=== PATIENT | female | born 2000 | race African-American/Black ===

== ENCOUNTER 2018-12-23 16:06 | Emergency (ER) | payer MEDICAID ==
--- NOTE | 2018-12-23 17:48 | ER Document Report ---
ED General - General Chief Complaint: Ear Pain Stated Complaint: EAR PAIN Time Seen by Provider: 12/23/18 17:48 Notes: Patient is a 18-year-old female that presents to the emergency department for chief complaint of right ear and dental pain. Patient states that she started having pain in her right ear and right face that started yesterday, seems to be irritated when she is in a cold environment which she has at work. She states she does have an issue with the tooth on her lower jaw on the right side, that seems to be worse with eating and in the cold environment. She denies noting any fevers, chills, night sweats or ear drainage. Denies having any congestion, or runny nose. Denies having any sore throat, cough, chest pain or swelling of her neck. She currently rates her pain as a 2 out of 10, describes it as an aching sensation. No other complaints at this time. Past Medical History: Denies chronic medical conditions Past Surgical History: Denies surgical history Social History: Admits to smoking cigarettes daily, denies alcohol or drug use. Family History: Reviewed and noncontributory for presenting illness Allergies: Reviewed, see documented allergy list. REVIEW OF SYSTEMS: Other than noted above, the 12 point review of systems was reviewed with the patient and were negative, all pertinent findings are included in the HPI. PHYSICAL EXAMINATION: Vital signs reviewed, nursing noted reviewed. GENERAL: Well-appearing, well-nourished and in no acute distress. HEAD: Atraumatic, normocephalic. EYES: Eyes appear normal, sclera anicteric, conjunctiva are normal. ENT: Moist mucous membranes. There is a fractured tooth on the left lower, tooth #30, with tenderness to palpation of the tongue blade and mild erythema of the gums, without evidence of abscess. The TMs appear normal bilaterally, no injection or erythema or bulging. Posterior pharynx is clear. NECK: Normal range of motion, supple without lymphadenopathy LUNGS: Breath sounds clear to auscultation bilaterally and equal. No wheezes rales or rhonchi. HEART: Regular rate and rhythm without murmurs EXTREMITIES: Nontender, good range of motion, no pitting or edema. NEUROLOGICAL: No focal neurological deficits. Moves all extremities spontaneously Motor and sensory grossly intact on exam. PSYCH: Normal mood, normal affect. SKIN: Warm, Dry, normal turgor, no rashes or lesions noted on exposed skin TRAVEL OUTSIDE OF THE [place] IN LAST 30 DAYS: No - Related Data Allergies/Adverse Reactions: shellfish derived Allergy (Verified 12/23/18 16:18) Past Medical History - Social History Smoking Status: Current Every Day Smoker Family History: Reviewed & Not Pertinent Physical Exam - Vital signs Vitals: Temp Pulse Resp BP Pulse Ox 98.0 F 98 20 132/87 H 99 12/23/18 16:20 12/23/18 16:20 12/23/18 16:20 12/23/18 16:20 12/23/18 16:20 Course - Re-evaluation Re-evalutation: Presentation is most consistent with likely an infected tooth. Airway is patent. Vitals within normal limits. Patient is able swallow without any difficulty. There is no significant facial swelling. No evidence of Ricardo angina, apical abscess, or airway obstruction. Patient will be started on antibiotics. I've instructed to follow-up with dentistry as earliest ability for definitive management. At this time will discharge with return precautions and follow-up recommendations. Verbal discharge instructions given a the bedside and opportunity for questions given. Medication warnings reviewed. Patient is in agreement with this plan and has verbalized understanding of return precautions and the need for primary care follow-up in the next 24-72 hours. - Vital Signs Vital signs: Temp Pulse Resp BP Pulse Ox 98.3 F 102 H 16 150/99 H 100 12/23/18 18:15 12/23/18 18:15 12/23/18 18:15 12/23/18 18:15 12/23/18 18:15 Discharge - Discharge Clinical Impression: Dental infection Condition: Stable Disposition: HOME, SELF-CARE Instructions: Dental Infection or Abscess ([facility]) Additional Instructions: Please take the antibiotic for the entire course prescribed, and please follow- up with a dentist, to have your tooth pain addressed. Prescriptions: RX: Amoxicillin Trihydrate [Amoxil 875 mg Tablet] 1 tab PO BID #20 tablet Ibuprofen [Motrin 600 Mg Tablet] 600 mg PO TID #15 tablet Forms: Return to Work
[2018-12-23] MEDS ORDERED: NAPROXEN 250 MG TABLET PO ONE (18:00)
[2018-12-23] MEDS ORDERED: AMOXICILLIN TRIHYDRATE 500 MG CAPSULE PO ONE (18:00)
[2018-12-23 18:39] VITALS: BP 150/99
== END 2018-12-23 18:52 | disposition home or self-care (01) ==
LOC: ER 16:06
DX: K04.7 Periapical abscess without sinus (principal); K08.89 Other specified disorders of teeth and supporting structures; H92.01 Otalgia, right ear; F17.210 Nicotine dependence, cigarettes, uncomplicated; Z91.013 Allergy to seafood
CPT/HCPCS: 99282; J3490